=== PATIENT | female | born 1935 | race Two or more races ===

== ENCOUNTER → 2016-09-12 | Outpatient (CLI) | payer MEDICARE, OTHER ==
--- NOTE | 2016-09-12 23:00 | HKNOTE ---
DATE OF SERVICE: 09/12/2016 The patient continues to complain of pain in both knees. She is thinking about having knee replacem ent surgery. She continues to have severe pain in her right knee. She cannot walk without her walk er. She gets pain and stiffness in both knees every day. She takes Voltaren or wrkf-vqd-lopfdhz NS AIDs which do not help very much anymore. She has had 2 series of cortisone injections into her kne es. The pain has gotten very severe of late. Pain is aggravated by walking. She does limp most of the time. She does not have a shoe lift. PAST ORTHOPEDIC HISTORY: PREVIOUS ORTHOPEDIC OPERATIONS: None. PRIOR CORTISONE INTAKE: None. ALCOHOL INTAKE: None. OTHER JOINT PROBLEMS: Left knee. BLOOD TESTS FOR ARTHRITIS: None. PRIOR INJURIES TO HIPS OR KNEES: None. PAST MEDICAL HISTORY: 1. The patient had previous breast cancer 38 years ago. 2. Hypertension. PAST SURGICAL HISTORY: Left breast mastectomy 35 years ago. ALLERGIES TO MAJOR MEDICATIONS: NONE. FAMILY HISTORY: Father at 92 of unstated cause. Mother at 86, unstated cause. SYSTEMS REVIEW: History of cancer, otherwise entirely negative. HABITS: The patient does not smoke or drink alcoholic beverages. PHYSICAL EXAMINATION: GENERAL: The patient comes in with her son and her daughter. She has an antalgic gait. VITAL SIGNS: Height 4 feet 10 inches. Weight 250 pounds. Blood pressure 170/80, temperature 98.5. HIPS: Both hips have a full range of motion without pain. RIGHT KNEE: The right knee shows normal alignment. Active and passive extension lacks 10 degrees. Active and passive flexion to 95 degrees. The medial and lateral collateral ligaments and cruciate ligaments are intact. Virginie test is negative. There is 6+ crepitus in the knee, none in the hassan lla. There is 1+ effusion. Pain at the limits of motion. No scarring or cysts. The patella track s normally. There is no tenderness on the articular surface of the patella or in the patellar groov e. The Q angle is normal. LEFT KNEE: The left knee shows normal alignment. Active and passive extension is 0 degrees. Activ e and passive flexion is 135 degrees. Pain on forced flexion and forced extension. The medial and lateral collateral ligaments and cruciate ligaments are intact. Virginie test is negative. There is no effusion, tenderness, scarring, crepitus, or cysts. The patella tracks normally. There is no t enderness on the articular surface of the patella or in the patellar groove. The Q angle is normal. IMAGING: Plain x-rays of the right knee obtained today at the [facility] were re viewed (3 views). These images show ____ severe degenerative changes in the medial compartment and patellofemoral joint. In both of these compartments, the cartilage has worn away completely, and th ere is gefg-xm-qows contact. Subchondral sclerosis is present. Osteophyte formation is present. DIAGNOSES: 1. Severe degenerative arthritis of the right knee. 2. History of breast cancer. 3. Hypertension. MANAGEMENT: The patient was advised that her options are to live with the problem or to consider kn ee replacement surgery. The operation of knee replacement was discussed with her through her son an d daughter translating in a fair amount of detail including the major postoperative care and possibl e complications. The patient was given my manual titled "Arthritis of the Knee Joint" which contains information conc erning the various alternatives of treatment. It includes various forms of conservative treatment, i ncluding the use of nonsteroidal anti-inflammatory medications and their dangers. Various surgical a lternatives are discussed. The technique of total knee replacement is discussed in detail, including possible complications. Included also is a section on the possible complications of blood transfusi on, a section on postoperative precautions, and an exercise program to follow at home after total kn ee replacement. The long-term care of a total knee replacement implant is also covered in detail. Th e patient was instructed to read this manual in its entirety since it is, in and of itself, a form o f informed consent. After reading this manual, the patient will make a list of further questions fatimah t may not have been covered adequately. The patient was further advised that this manual, although e xhaustive in nature, is only intended to supplement and complement a one-on-one discussion with me. FINAL DIAGNOSES: 1. Severe degenerative arthritis of the right knee. 2. History of breast cancer. 3. Hypertension. The patient's surgery will be scheduled to be performed in the near future. Dictated By: FABI REYES/PARK Conf#: [id number] DID#: [id number]
--- NOTE | 2016-09-13 16:41 | RADRPT ---
PROCEDURE: XR right knee. CLINICAL INDICATION: Knee pain TECHNIQUE: AP weightbearing, lateral weightbearing and sunrise views are available for review. COMPARISON: None available FINDINGS: There is severe osteoarthrosis involving the medial tibial femoral compartment and mild to moderate osteoarthrosis involving the patellofemoral compartment. This is associated with joint space narrowi ng, subchondral sclerosis and osteophytosis. There is diffuse osteopenia. No fractures are identifi ed. No osseous lesions are identified. The soft tissues are unremarkable. IMPRESSION: Diffuse osteopenia. Severe osteoarthrosis involving the medial tibial femoral compartment and mild to moderate osteoarth rosis involving the patellofemoral compartment RPTAT: HGDB .Loc Little MD, MD Date Time Electronically viewed and signed by .Loc Little MD, on 09/13/2016 16:41 .B/
--- NOTE | 2016-09-18 16:42 | PREOPHP ---
DATE OF ADMISSION: 09/12/2016 PREOPERATIVE INTERNAL MEDICINE CONSULTATION MEDICAL HISTORY AND PHYSICAL The patient to have surgery with Dr. Cesar Eng on 09/20/2016. REASON FOR CONSULTATION: Consultation requested by Dr. Cesar Eng for medical evaluation and clearance of an 81-year-old woman about to undergo total knee replacement on the right knee. Thank you, Dr. Eng, for allowing us to participate in the care of this patient. HISTORY OF PRESENT ILLNESS: Reynaldo Urena an 81-year-old woman, longstanding problems with her knees currently addressing the right knee, scheduled for total knee replacement on the right side 09/20/2016. Only prior surgery was for mastectomy of the right breast for breast cancer. Other than that, she has had no other surgeries. Has had 3 deliveries which were vaginal. Had no medical hospitalizations, broken no big bones and currently apparently only taking eye drops, according to the patient. ALLERGIES: SHE IS NOT ALLERGIC TO ANY MEDICATIONS. SOCIAL HISTORY: The patient is a , has 3 daughters, 7 grandchildren, all in good health. She does not smoke or drink alcoholic beverages nor does she drink coffee and usually has no great problems sleeping at night. FAMILY HISTORY: Both parents are . Father at age 82 of an CT. Mother in her 80s of natural causes, she did not know the cause. There is no family history of heart disease. There is no diabetes, cancer, hypertension or stroke to her knowledge. REVIEW OF SYSTEMS HEENT: Periodic headaches. CARDIORESPIRATORY: Denies any significant chest pain or shortness of breath. GASTROINTESTINAL: No melena or hematemesis. GENITOURINARY: No urgency, frequency. 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 MUSCULOSKELETAL: Positive for right knee pain. NEUROPSYCHIATRIC: Unremarkable. GENERAL HEALTH: As above. PHYSICAL EXAMINATION: VITAL SIGNS: The patient's blood pressure was 120/70, pulse was 92 and regular , respirations were 18, temperature 98.4. Height 149 cm, weight 209.5 pounds. GENERAL: The patient was noted to be a well-developed, well-nourished female, alert and cooperative, in no apparent acute distress, oriented to time, place, and person. HEAD, EARS, EYES, NOSE AND THROAT: Head was atraumatic. Eyes: Pupils were equal, reactive to light and accommodation. Fundi were grossly benign. Tympanic membranes were unremarkable. Nose was negative. Mouth was unremarkable. Fair oral hygiene was present. NECK: Supple without any rigidity. Trachea was midline. Thyroid was within normal limits. Neck veins were flat. Carotid pulses were equal. No bruits were heard. BACK: Revealed kyphotic deformity. CHEST: Asymmetrical with a right mastectomy scar being noted. Left breast was normal. LUNGS: No obvious axillary masses, scar being noted. Left breast and both axillary exams were unremarkable save for some swelling in the right upper extremity secondary to lymph node dissections. LUNGS: Clear to percussion and auscultation. HEART: PMI is fifth intercostal space at the midclavicular line. A regular sinus rhythm was noted. No significant murmurs, rubs, or gallops being elicited. ABDOMEN: Soft, good bowel sounds were noted. No significant organomegaly, masses, or tenderness. GENITALIA: Normal female external genitalia. PELVIC/RECTAL: Per PCP done recently described as being unremarkable. EXTREMITIES: Revealed the right upper extremity to be somewhat edematous secondary to her poor lymph drainage secondary to lymph node dissection, otherwise there was no clubbing, edema or cyanosis. Peripheral pulses were physiologic. Both knees revealed degenerative joint changes of right greater than left. Peripheral pulses were physiologic. SKIN: Moist and warm without any eruptions. No gross lymphadenopathy was noted. NEUROLOGIC: Grossly intact. IMPRESSION: 1. Degenerative joint disease, right knee. 2. Carcinoma of the right breast post-mastectomy on the right side and lymphedema right upper extremity. 3. Diabetes mellitus type 2. 4. Subclinical hypothyroidism. 5. Stable health. DISCUSSION: Review of laboratory and other data revealed the following: The patient's chemistry panel revealed minimally elevated cholesterol and triglycerides glucose of 159. The rest of the electrolytes, BUN, creatinine, liver function tests were basically within normal limits. The patient's CBC, PT and PTT were normal as was her vitamin D, her thyroid function tests revealed a TSH of 8.20 with a free T4 of 0.76, which is normal. Hemoglobin A1c which was 7.1. The patient's EKG and chest x-ray revealed normal lungs, otherwise no acute cardiopulmonary changes being noted. DISCUSSION: Dr. Eng, I see no contraindication to patient undergoing current proposed surgery under the desired form of anesthesia and we will follow her along with you during her stay at [facility], in terms of her general medical condition. Thank you again, Dr. Eng, for allowing us to participate in the care of this patient. Dictated By: DEREK CARLSON/PARK Conf#: [id number] DID#: [id number] MTDD
== END | disposition home or self-care (01) ==
LOC: HKI 15:11
DX: Z01.818 Encounter for other preprocedural examination (principal); M17.11 Unilateral primary osteoarthritis, right knee; C50.911 Malignant neoplasm of unspecified site of right female breast; E11.9 Type 2 diabetes mellitus without complications; E03.9 Hypothyroidism, unspecified
CPT/HCPCS: 73562; G0463

== ENCOUNTER 2016-09-20 05:43 | Inpatient (IN) | payer MEDICARE, OTHER ==
--- NOTE | 2016-09-18 16:42 | PREOPHP ---
DATE OF ADMISSION: 09/12/2016 PREOPERATIVE INTERNAL MEDICINE CONSULTATION MEDICAL HISTORY AND PHYSICAL The patient to have surgery with Dr. Cesar Eng on 09/20/2016. REASON FOR CONSULTATION: Consultation requested by Dr. Cesar Eng for medical evaluation and clearance of an 81-year-old woman about to undergo total knee replacement on the right knee. Thank you, Dr. Eng, for allowing us to participate in the care of this patient. HISTORY OF PRESENT ILLNESS: Reynaldo Urena an 81-year-old woman, longstanding problems with her knees currently addressing the right knee, scheduled for total knee replacement on the right side 09/20/2016. Only prior surgery was for mastectomy of the right breast for breast cancer. Other than that, she has had no other surgeries. Has had 3 deliveries which were vaginal. Had no medical hospitalizations, broken no big bones and currently apparently only taking eye drops, according to the patient. ALLERGIES: SHE IS NOT ALLERGIC TO ANY MEDICATIONS. SOCIAL HISTORY: The patient is a , has 3 daughters, 7 grandchildren, all in good health. She does not smoke or drink alcoholic beverages nor does she drink coffee and usually has no great problems sleeping at night. FAMILY HISTORY: Both parents are . Father at age 82 of an SD. Mother in her 80s of natural causes, she did not know the cause. There is no family history of heart disease. There is no diabetes, cancer, hypertension or stroke to her knowledge. REVIEW OF SYSTEMS HEENT: Periodic headaches. CARDIORESPIRATORY: Denies any significant chest pain or shortness of breath. GASTROINTESTINAL: No melena or hematemesis. GENITOURINARY: No urgency, frequency. 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 MUSCULOSKELETAL: Positive for right knee pain. NEUROPSYCHIATRIC: Unremarkable. GENERAL HEALTH: As above. PHYSICAL EXAMINATION: VITAL SIGNS: The patient's blood pressure was 120/70, pulse was 92 and regular , respirations were 18, temperature 98.4. Height 149 cm, weight 209.5 pounds. GENERAL: The patient was noted to be a well-developed, well-nourished female, alert and cooperative, in no apparent acute distress, oriented to time, place, and person. HEAD, EARS, EYES, NOSE AND THROAT: Head was atraumatic. Eyes: Pupils were equal, reactive to light and accommodation. Fundi were grossly benign. Tympanic membranes were unremarkable. Nose was negative. Mouth was unremarkable. Fair oral hygiene was present. NECK: Supple without any rigidity. Trachea was midline. Thyroid was within normal limits. Neck veins were flat. Carotid pulses were equal. No bruits were heard. BACK: Revealed kyphotic deformity. CHEST: Asymmetrical with a right mastectomy scar being noted. Left breast was normal. LUNGS: No obvious axillary masses, scar being noted. Left breast and both axillary exams were unremarkable save for some swelling in the right upper extremity secondary to lymph node dissections. LUNGS: Clear to percussion and auscultation. HEART: PMI is fifth intercostal space at the midclavicular line. A regular sinus rhythm was noted. No significant murmurs, rubs, or gallops being elicited. ABDOMEN: Soft, good bowel sounds were noted. No significant organomegaly, masses, or tenderness. GENITALIA: Normal female external genitalia. PELVIC/RECTAL: Per PCP done recently described as being unremarkable. EXTREMITIES: Revealed the right upper extremity to be somewhat edematous secondary to her poor lymph drainage secondary to lymph node dissection, otherwise there was no clubbing, edema or cyanosis. Peripheral pulses were physiologic. Both knees revealed degenerative joint changes of right greater than left. Peripheral pulses were physiologic. SKIN: Moist and warm without any eruptions. No gross lymphadenopathy was noted. NEUROLOGIC: Grossly intact. IMPRESSION: 1. Degenerative joint disease, right knee. 2. Carcinoma of the right breast post-mastectomy on the right side and lymphedema right upper extremity. 3. Diabetes mellitus type 2. 4. Subclinical hypothyroidism. 5. Stable health. DISCUSSION: Review of laboratory and other data revealed the following: The patient's chemistry panel revealed minimally elevated cholesterol and triglycerides glucose of 159. The rest of the electrolytes, BUN, creatinine, liver function tests were basically within normal limits. The patient's CBC, PT and PTT were normal as was her vitamin D, her thyroid function tests revealed a TSH of 8.20 with a free T4 of 0.76, which is normal. Hemoglobin A1c which was 7.1. The patient's EKG and chest x-ray revealed normal lungs, otherwise no acute cardiopulmonary changes being noted. DISCUSSION: Dr. Eng, I see no contraindication to patient undergoing current proposed surgery under the desired form of anesthesia and we will follow her along with you during her stay at [facility], in terms of her general medical condition. Thank you again, Dr. Eng, for allowing us to participate in the care of this patient. Dictated By: DEREK CARLSON/PARK Conf#: [id number] DID#: [id number] MTDD
[2016-09-20] VITALS (23 sets, daily range): BP systolic 107–164; BP diastolic 54–76; PULSE 76–98; RESP 14–20; Ht 144.8 cm; Wt 95.0 kg
[~2016-09-20] VITALS: Ht 144.8 cm; Wt 95.0 kg
[2016-09-20] MEDS: KNEE PAIN COCKTAIL VANCO INJ SCH ×12 (05:00→08:58)
[2016-09-20] MEDS ORDERED: TRANEXAMIC ACID 2,000 MG in SOD CHLORIDE 0.9% 100 ML IVPB ONE (06:00)
[2016-09-20] MEDS ORDERED: ONDANSETRON 4 MG INJ IV ONE (06:00)
[2016-09-20] MEDS ORDERED: ACETAMINOPHEN 1000MG/100ML IV 100 ML IVPB ONE (06:00)
[2016-09-20] MEDS ORDERED: oxyCODONE (CR) 10 MG TAB [oxyCONTIN] PO ONE (06:00)
[2016-09-20] MEDS ORDERED: LACTATED RINGER'S 1,000 ML IV* SCH (06:00)
[2016-09-20] MEDS ORDERED: DEXAMETHASONE 4 MG/ML 1 ML INJ IV ONE (06:00)
[2016-09-20] MEDS ORDERED: LANSOPRAZOLE 30 MG CAP PO ONE (06:00)
[2016-09-20] MEDS ORDERED: VANCOMYCIN 1 GM (PMX) 250 ML IVPB ONE (06:00)
[2016-09-20] MEDS ORDERED: CELECOXIB 200 MG CAP PO ONE (06:00)
[2016-09-20] MEDS ORDERED: GLYCOPYRROLATE 0.4 MG INJ ONE (06:10)
[2016-09-20] MEDS ORDERED: MIDAZOLAM 1 MG/ML 2 ML INJ ONE (06:10)
[2016-09-20] MEDS ORDERED: PROPOFOL 20 ML ONE (06:10)
[2016-09-20] MEDS ORDERED: ROCURONIUM 50 MG INJ ONE (06:10)
[2016-09-20] MEDS ORDERED: FENTAnyl 50 MCG/ML VIAL ONE (06:10)
[2016-09-20] MEDS ORDERED: LIDOCAINE 2% (SDV) 5 ML INJ ONE (06:10)
[2016-09-20] MEDS ORDERED: NEOSTIGMINE 3 MG/3 ML SYRINGE ONE (06:10)
[2016-09-20] MEDS ORDERED: DEXAMETHASONE 4 MG/ML 1 ML INJ ONE (06:14)
[2016-09-20] MEDS ORDERED: ONDANSETRON 4 MG INJ ONE (06:14)
[2016-09-20] MEDS ORDERED: LIDOCAINE 2%/EPI 30 ML INJ ONE (06:18)
[2016-09-20] MEDS ORDERED: MIDAZOLAM 1 MG/ML 2 ML INJ IV PRN (06:30)
[2016-09-20] MEDS ORDERED: ATROPINE 1 MG/10 ML SYRINGE IV PRN (06:30)
[2016-09-20] MEDS ORDERED: ONDANSETRON 4 MG INJ IV PRN (06:30)
[2016-09-20] MEDS ORDERED: morphine (1 MG/ML) 10ML SYRINGE IV PRN ×3 (06:30)
[2016-09-20] MEDS ORDERED: DIPHENHYDRAMINE 50 MG INJ IV PRN (06:30)
[2016-09-20] MEDS ORDERED: HYDROmorphONE (0.2 MG/ML) 10ML SYG IV PRN ×3 (06:30)
[2016-09-20] MEDS ORDERED: hydrALAzine 20 MG INJ IV PRN (06:30)
[2016-09-20] MEDS ORDERED: OXYCODONE/ACETAMINOPHEN (5/325) TAB PO PRN ×2 (06:30)
[2016-09-20] MEDS ORDERED: EPHEDrine SULFATE 50 MG/5 ML SYG IV PRN (06:30)
[2016-09-20] MEDS ORDERED: FENTAnyl 50 MCG/ML VIAL IV PRN ×2 (06:30)
[2016-09-20] MEDS ORDERED: LABETALOL HCL 20MG INJ IV PRN (06:30)
[2016-09-20] MEDS ORDERED: MEPERIDINE 25 MG INJ IV PRN (06:30)
[2016-09-20] MEDS ORDERED: TOBRAMYCIN 1.2 GM POWDER ONE (07:00)
[2016-09-20] MEDS ORDERED: METHYLENE BLUE 10 MG/ML VIAL ONE (07:00)
[2016-09-20] MEDS ORDERED: BUPIVACAINE 0.25%/EPI (SDV) 30 ML INJ ONE (07:00)
[2016-09-20] MEDS ORDERED: POLYMYXIN B 500000 UNIT INJ ONE (07:00)
[2016-09-20] MEDS ORDERED: ROPIVACAINE 0.2% 100 ML ONE (07:00)
[2016-09-20] MEDS ORDERED: SUCCINYLCHOLINE CHLORIDE 100 MG/5 ML SYG IV ONE (07:00)
[2016-09-20] MEDS ORDERED: VANCOMYCIN 1 GM INJ ONE (07:01)
--- NOTE | 2016-09-20 07:04 | HPN ---
Date/Time of Note Date/Time of Note DATE: 09/20/16 TIME: 07:03 Interval H&P Admission Note Pt. seen H&P reviewed: No system changes DAVONTE ALMARAZ PA-C Sep 20, 2016 07:04
[2016-09-20] MEDS ORDERED: SOD CHLORIDE 0.9% 50 ML, TRANEXAMIC ACID 2,000 MG IRR SCH ×2 (07:30)
[2016-09-20] MEDS ORDERED: EPHEDrine SULFATE 50 MG/5 ML SYG ONE (07:44)
[2016-09-20] MEDS ORDERED: BACITRACIN 50000 UNITS INJ IRR ONE (08:46)
[2016-09-20] MEDS ORDERED: LATA2.5D2 BOTH EYES (08:52)
[2016-09-20] MEDS ORDERED: CALC600T5 PO (08:52)
[2016-09-20] MEDS ORDERED: VALS1TAB5 PO (08:52)
[2016-09-20] MEDS ORDERED: AZOP1OP10 BOTH EYES (08:52)
[2016-09-20] MEDS ORDERED: ASPI81TA3 PO (08:52)
[2016-09-20] MEDS ORDERED: LEVO25TA53 PO (08:52)
[2016-09-20] MEDS ORDERED: METO25TA7 PO (08:52)
[2016-09-20] MEDS ORDERED: ROPIVACAINE 0.2% 100ML BAG INJ ONE (08:58)
[2016-09-20] MEDS: DEXTROSE 5%-LR 1,000 ML IV SCH ×2 (11:32→19:00)
[2016-09-20] MEDS ORDERED: DOCUSATE SODIUM 100 MG CAP PO ONE (12:00)
[2016-09-20] MEDS ORDERED: ZOLPIDEM 5 MG TAB PO PRN (12:00)
[2016-09-20] MEDS ORDERED: DIPHENHYDRAMINE 50 MG INJ IM PRN (12:00)
[2016-09-20] MEDS ORDERED: NALOXONE (0.4 MG/ML) INJ IV PRN (12:00)
[2016-09-20] MEDS ORDERED: ASPIRIN (EC) 325 MG TAB PO ONE (12:00)
[2016-09-20] MEDS ORDERED: NA PHOSPHATE/BIPHOS 133 ML ENEMA PR PRN (12:00)
[2016-09-20] MEDS ORDERED: BISACODYL 10 MG SUPP PR PRN (12:00)
[2016-09-20] MEDS ORDERED: COUMADIN NOTE XX SCH (12:00)
[2016-09-20] MEDS ORDERED: SENNA/DOCUSATE NA (8.6MG/50MG) TAB PO PRN (12:00)
[2016-09-20] MEDS ORDERED: MAGNESIUM HYDROXIDE 30ML CUP PO PRN (12:00)
[2016-09-20] MEDS ORDERED: oxyCODONE 5 MG TAB PO PRN ×3 (12:00)
[2016-09-20] MEDS ORDERED: MEPERIDINE 10 MG/ML 30 ML PCA IV PRN (12:00)
[2016-09-20] MEDS ORDERED: HYDROmorphONE 0.2 MG/ML PCA IV PRN (12:00)
[2016-09-20] MEDS ORDERED: BETHANECHOL 25 MG TAB PO PRN (12:00)
--- NOTE | 2016-09-20 12:06 | RADRPT ---
PROCEDURE: XR right knee. CLINICAL INDICATION: Knee pain. TECHNIQUE: AP and lateral views are available for review. COMPARISON: No comparison available FINDINGS: There is a postoperative constrained total knee replacement. There is no evidence of loosening of th e prosthesis. The osseous structures are normal in mineralization, architecture and alignment No acu te fracture or dislocation is seen.No osseous lesions are identified. There are postoperative soft tissue changes. [address] . IMPRESSION: Unremarkable postoperative constrained total knee replacement. Postoperative soft tissue changes RPTAT: HGDB .Loc Little MD, MD Date Time Electronically viewed and signed by .Loc Little MD, MD on 09/20/2016 12:06 .B/
[2016-09-20] MEDS: CEFAZOLIN 1 GM/50 ML (PMX) 50 ML IVPB SCH ×2 (12:09→20:06)
[2016-09-20] MEDS: ACETAMINOPHEN 1000MG/100ML IV 100 ML IVPB SCH ×2 (12:09→20:07)
[2016-09-20] MEDS: ONDANSETRON 4 MG INJ IV SCH ×2 (12:10→18:29)
--- NOTE | 2016-09-20 12:46 | OPR ---
DATE OF OPERATION: 09/20/2016 TOTAL KNEE REPLACEMENT TEMPLATE #1 SURGEON: Cesar Eng MD STEREO PLOTTER OPERATOR: Fan ANESTHESIOLOGIST: Dr. José PREOPERATIVE DIAGNOSIS: Exceedingly severe degenerative osteoarthritis of the right knee. POSTOPERATIVE DIAGNOSIS: Exceedingly severe degenerative osteoarthritis of the right knee. OPERATION PERFORMED: Right total knee replacement (arthroplasty of the knee, condylar plateau media l and lateral compartments with patella resurfacing, CPT 17317). FINDINGS AT SURGERY: The patient was found to have exceedingly severe degenerative osteoarthritis a ffecting all 3 compartments of the knee. The arthritis was much more severe than it appeared to be on x-ray. There was no remaining articular cartilage on medial femoral condyle or the medial tibial plateau. There was some pathological cartilage remaining on the patella surface and the lateral co mpartment. JUSTIFICATION FOR SURGERY: The knee was found to have end-stage osteoarthritis. The patient is a m arkedly incapacitated 81-year-old female whose activities of daily living is markedly affected by th e arthritic knee. An extensive course of conservative care has been tried prior to embarking on the knee replacement operation. There can be no reasonable expectation that any further conservative t reatment will make any improvement to this patient's pain level and lifestyle. The risks and compli cations of the surgery were discussed with the patient at the preoperative visit as well as the risk s and possible complications of blood transfusion using hospital blood. The patient is agreeable to using hospital blood if needed. DESCRIPTION OF PROCEDURE: The patient was given intravenous antibiotics 1 hour prior to surgery. A n epidural anesthetic was initiated in the ICU holding area. The patient was taken to the operating room and given a light general anesthetic. The leg, foot, and ankle were prepared and draped in th e usual sterile fashion. The center of the ankle was marked at the midpoint between the 2 malleoli with a sterile marking pen. A tourniquet around the thigh was inflated to 275 mmHg after the leg mauro d been exsanguinated using an Esmarch bandage. The tourniquet was inflated at the initiation of pro cedure for a short period and was then again reinflated at the time of cementing the components part s. The total tourniquet time was 54 minutes. A longitudinal incision was made over the anterior aspect of the knee. The incision extended from t he tibial tubercle to a point just above the patella. The medial capsule was exposed by sharp and b diana dissection, and was incised 1/4 inch medial to the patella. A marking stitch was set on each s ida of the incision at the midpoint of the capsule so as to enable accurate reapproximation at the e nd of the operation. A vastus split was made in the vastus medialis extending from the superior haile e of the patella for approximately 5 cm between the line with the muscle fibers. The ends of the mu scle split at the patella were marked with a marking stitch on each side for later accurate reapprox imation. The patella was reflected laterally and osteophytes around the rim of the patella were rem shanel. Osteophytes along the lateral femoral condyle were removed so as to facilitate lateral reflec tion of the patella. Posteromedial osteophytes were removed on the lateral side as well, so as to f ree up the lateral collateral ligament. Medial femoral osteophytes and posteromedial femoral osteop hytes were also removed at this time. This allowed for the knee to be brought into a more normal al ignment. A segment of bone was cut from the articular surface of the patella using a caliper to det ermine the exact thickness to be removed. The remaining thickness of the patella was 16 mm. The kn ee was flexed, and the patella was displaced laterally without eversion. Osteophytes in the femoral notch were removed. The remnants of the medial and lateral menisci were excised and the cruciate l igaments were excised. The medial collateral ligament was elevated as an osteo-periosteal flap from the proximal tibia. The distal end of the medial collateral ligament remained attached to the tibi a throughout the operation. The tibia was retracted forward with Hohmann retractor, inserted it communications specialist ior to the midpoint of the proximal tibia. The tibial jig was set in place in such a way as to alig n longitudinally with the anterior tibial spine, with the junction of the middle and medial 2/3 of t he patella tendon, and with the posterior intercondylar eminence of the tibia. An AP and lateral x- ray was obtained with the alignment jig in place. This showed that the alignment was satisfactory a fter some slight adjustments were made. The posterior slope of the tibia was set at 90 degrees. Th e tibial cutting block was attached to the proximal tibia with 2 Steinmann pins. An external alignm ent pierre was placed on the cutting block to confirm the alignment of the cutting block. An Corey Win g feeler gauge was now placed on the superior aspect of the cutting block to further confirm the pos terior slope of the tibia and the depth of the cut to be made. An oscillating saw was used to remov e an appropriate amount of bone from the proximal tibia with the healthy side being used to measure the cutting depth. The patient's one was markedly soft on the tibial side, and it had already been determined that a revision tibial component would be used with an intramedullary component. The lat eral femoral condyle of the distal femur was measured to determine the appropriate size for the femo ral component. The anterior condyle of the femur was partially removed with a rongeur. A medium-si zed cutting block was attached to the distal femur with 2 Steinmann pins through the pin holes in th e block. The external alignment jig of this cutting block was lined up with the anterior surface of the femur and a central intercondylar hole for the intramedullary pierre was drilled through the hole in the alignment block. The block was removed. A long Waterpik nozzle was used to flush fat from t he intramedullary canal. The appropriately sized cutting block was now attached to the femur by bernie ns of an intramedullary pierre. The linking guide was inserted into the slot in the base of the femora l cutting block with the knee set at 90 degrees of flexion and with the linking guide set flush with the proximal tibial cut in order to set the appropriate rotational alignment on the femoral cutting block. Ligament balance was checked at this point and was found to be very satisfactory. Once the rotational alignment had been determined, and the ligaments found to be balanced, the femoral cutti ng block was secured to the distal femur with 2 Steinmann pins. The anterior and posterior cuts of the distal femur were made off the femoral cutting block. The cutting block was removed and a space r block was used to measure the flexion gap which was found to be ____ mm. The same spacer block size without the femoral element was used with the leg in extension to determi ne the amount of distal femur to be removed in the transverse plane. A 5-degree distal cutting bloc k was now set on the femoral intramedullary pierre, and the pierre was inserted into the intramedullary ca nal. The appropriate amount of bone to be removed was determined. The femoral cutting block was pi nned to the anterior surface of the femur with 2 Steinmann pins. The appropriate amount of bone was resected off the distal femur to give an extension gap equal to the thickness of the flexion gap. The cut needed to be repeated after initial cut in order to produce an extension gap the same size a s the flexion gap. By using the appropriate cutting blocks, the rest of the femoral cuts were made. The femoral trial component was installed and was found to fit perfectly. The femoral trial component was removed. Vijay lopez proximal tibia was sized, and the appropriate tibial tray selected. The central fixation hole in the tibia was made using the tibial tray template and the appropriate instruments. The femoral and tibial trials and the trial tibial insert were installed, and the patella was prepared to accept th e 32 mm domed patellar component (the smallest patellar trial). The trial components were all remov ed. The tourniquet was inflated. Soft tissues around the knee, especially the posterior capsule, w ere injected with a mixture of Naropin, Toradol, morphine, and clonidine. The cut surfaces of the b ones were cleaned with pulsatile Water Jet lavage and thoroughly dried. Sclerotic bone surfaces wer e drilled with a 1/8-inch drill. The tibial trial component was installed with methyl methacrylate cement followed by the femoral component and finally the patellar component. Cement was used on all 3 components. The cement was finger packed into the cut surfaces of the bone and pressurized with a rubber dam in order to get good interdigitation of the cement into the bone. A lateral x-ray of vijay lopez knee was obtained while the cement was hardening with the anticipated appropriate spacer trial in place. Once the cement was hard, all extraneous cement was removed. The cut edges of the medial c apsule were held together at the midpoint with a towel clip, and the knee was put through a full ran ge of motion. The patella was found to track satisfactorily. A lateral release was not required. At this point, the patella was found to track very well in the patellar groove of the femoral compon ent. The knee was frequently irrigated with normal saline containing antibiotics with pulsatile lavage th roughout the entire operation as a prophylactic measure against infection. Once the cement was hard , the tourniquet was released. Bleeding points were cauterized. The total tourniquet time was 54 m inutes. The patient's vital signs remained stable throughout the operation. The permanent rotating bearing was installed. Superficial and deep Hemovac drains were set in place . The wound was closed using interrupted Vicryl on the capsule with FiberWire used at strategic poi nts such as the attachment of the distal ends of the vastus medialis at the split, and the tibial te ndon was also attached to the osteo-periosteal flap with FiberWire. The rest of the medial capsule was closed with interrupted Vicryl. A subcuticular stitch was inserted and eros were used on the skin. The usual sterile dressings were applied. A Sadi-Pizarro compression dressing was applied a fter a sterile cooling pad had been set in place against the deep tissues by sterile cast padding. The patient's condition at the end of the procedure was satisfactory. Vital signs remained stable t hroughout the operation. The patient returned to the recovery room in stable condition. X-rays wer e obtained in the recovery room. Calf pumps were applied to both legs in the operating room. There were no problems or complications as far as we know. The sponge and instrument counts were correct . COMPONENT INFORMATION: KNEE IMPLANT TYPE: LCS. FEMORAL COMPONENT SIZE: Standard. TIBIAL COMPONENT SIZE: 2.5 INTRAMEDULLARY TIBIAL EXTENSION: 13 mm x 30 mm. PATELLAR COMPONENT SIZE: 30 mm dome. TIBIAL INSERT: 10 mm deep dish posterior stabilized. IMPLANT CLINICAL ACCOUNT LIAISON: [facility] [place], [place]. TOTAL TOURNIQUET TIME: 54 minutes. TOTAL BLOOD LOSS: Approximately 150 mL. Dictated By: CESAR REYES/PARK Conf#: [id number] DID#: [id number]
[2016-09-20] MEDS ORDERED: GLUCAGON 1 MG INJ IM PRN (13:30)
[2016-09-20] MEDS ORDERED: GLUCOSE GEL 15 GRAM TUBE BUCCAL PRN (13:30)
[2016-09-20] MEDS ORDERED: GLUCOSE GEL 15 GRAM TUBE PO PRN ×2 (13:30)
[2016-09-20] MEDS ORDERED: DEXTROSE 50% 50 ML SYRINGE IV PRN ×2 (13:30)
--- NOTE | 2016-09-20 13:40 | CONS ---
DATE OF ADMISSION: 09/20/2016 DATE OF CONSULTATION: TYPE OF CONSULTATION: Postoperative consult followup. REASON FOR ADMISSION: Patient to have surgery with Dr. Cesar Eng 09/20/2016. Patient see n in the recovery room, alert, arousable, and doing relatively well. VITAL SIGNS: The patient's vital signs 128/58, temperature 98.2, pulse 94 and regular, respirations 15, O2 on 2 liters 97%. HEENT: Unremarkable. LUNGS: Clear. HEART: Reveals a regular rhythm. The rest of the exam is unremarkable. IMPRESSION: 1. 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 2. Hypertension. 3. Hypothyroidism. 4. Diabetes mellitus type 2. 5. Stable health. DISCUSSION: To renew the patient's outpatient medications, Accu-Cheks will be done b.i.d., covered with mild insulin algorithm. The patient will be monitored both in terms of her blood pressure, bloo d sugar and general medical condition. Thank you again, Dr. Eng, for allowing us to participate in the care of this patient. Dictated By: DEREK GROVE MD SS/NTS Conf#: [id number] DID#: [id number]
--- NOTE | 2016-09-20 13:56 | RADRPT ---
PROCEDURE: Right knee radiograph. CLINICAL INDICATION: Right knee pain. Intraoperative. TECHNIQUE: 2 views. Frontal and lateral. COMPARISON: 09/12/2016. FINDINGS: There are components of a total right knee arthroplasty. IMPRESSION: 1. Satisfactory intraoperative imaging of the right knee. RPTAT: QQ .Markell Vásquez MD, MD Date Time Electronically viewed and signed by .Markell Vásquez MD, on 09/20/2016 13:56 .R/
--- NOTE | 2016-09-20 14:17 | RADRPT ---
PROCEDURE: Intraoperative imaging of the right knee with fluoroscopy. CLINICAL INDICATION: Right knee pain. Intraoperative. TECHNIQUE: 5 images of the right knee were obtained in the operating room with an image intensifie r. No radiologist was in attendance. 10.4 seconds of fluoroscopy time was used. COMPARISON: Prior imaging of the right knee done earlier the same day. FINDINGS: Surgical instruments are present for knee arthroplasty. IMPRESSION: 1. Intraoperative imaging of the right knee. RPTAT: QQ .Markell Vásquez MD, Date Time Electronically viewed and signed by .Markell Vásquez MD, on 09/20/2016 14:17 .R/
[2016-09-20] MEDS ORDERED: BACITRACIN 50000 UNITS INJ ONE (14:52)
[2016-09-20] MEDS ORDERED: TRANEXAMIC ACID 950 MG in SOD CHLORIDE 0.9% 100 ML IVPB ONE (15:00)
[2016-09-20] MEDS: INSULIN ASPART [NOVOLOG] 3 ML PEN SC SCH (18:30)
[2016-09-20] MEDS: CALCIUM CARBONATE 1.25 GM TAB PO SCH (18:30)
[2016-09-20] MEDS: BRINZOLAMIDE 1% 10ML OPH BOTH EYES SCH (21:14)
[2016-09-20] MEDS: LATANOPROST 0.005% 2.5 ML OPH BOTH EYES SCH (21:15)
[2016-09-20] MEDS: METOPROLOL (XL) 25 MG TAB PO SCH (21:24)
[2016-09-21 00:01] VITALS: BP 116/57; RESP 18
[2016-09-21] MEDS: DEXTROSE 5%-LR 1,000 ML IV SCH ×2 (00:02→06:34)
[2016-09-21] MEDS: ACETAMINOPHEN 1000MG/100ML IV 100 ML IVPB SCH ×3 (04:22→21:14)
[2016-09-21] MEDS: CEFAZOLIN 1 GM/50 ML (PMX) 50 ML IVPB SCH (04:25)
[2016-09-21 05:25] VITALS: BP 123/57; PULSE 80
[2016-09-21] MEDS: ONDANSETRON 4 MG INJ IV SCH ×2 (06:00)
[2016-09-21] MEDS ORDERED: LEVOTHYROXINE 25 MCG TAB PO SCH (06:00)
[2016-09-21] MEDS ORDERED: KETOROLAC 30 MG INJ INJ PRN (06:00)
[2016-09-21] MEDS ORDERED: BUPIVACAINE 0.25%/EPI (SDV) 30 ML INJ INJ PRN (06:00)
[2016-09-21 06:04] LABS: POTASSIUM 3.8 mmol/L (3.5-5.1)
[2016-09-21 06:06] LABS: CREATININE 1.24 mg/dl (0.44-1.00)
[2016-09-21 06:07] LABS: CALCIUM 8.5 mg/dl (8.4-10.2)
[2016-09-21 06:13] LABS: BASOPHIL # 0.1 10^3/ul (0.0-0.1); BASOPHILS % 0.4 % (0.0-2.0); EOSINOPHILS % 0.1 % (0.0-7.0); LYMPHOCYTES # 1.9 10^3/ul (0.8-2.9); LYMPHOCYTES % 13.7 % (15.0-51.0); MEAN CORPUSCULAR HEMOGLOBIN 28.9 pg (29.0-33.0); MEAN CORPUSCULAR HGB CONC 33.4 g/dl (32.0-37.0); MEAN CORPUSCULAR VOLUME 86.4 fl (82.0-101.0); MEAN PLATELET VOLUME 10.2 fl (7.4-10.4); MONOCYTE # 1.2 10^3/ul (0.3-0.9); MONOCYTES % 9.1 % (0.0-11.0); NEUTROPHIL # 10.5 10^3/ul (1.6-7.5); NEUTROPHILS % 76.7 % (39.0-77.0); PLATELET COUNT 185 10^3/UL (140-440); RED BLOOD COUNT 3.82 10^6/ul (4.20-5.40); RED CELL DISTRIBUTION WIDTH 13.9 % (11.5-14.5); UNCORRECTED WBC 13.6 10^3/ul (4.8-10.8); WHITE BLOOD COUNT 13.6 10^3/ul (4.8-10.8)
[2016-09-21 06:18] LABS: CONDITION 1; LH ANALYZER COMMENTS 1; SUSPECT 1
[2016-09-21] MEDS: DEXAMETHASONE 4 MG/ML 1 ML INJ IV SCH (06:33)
[2016-09-21] MEDS: LEVOTHYROXINE 25 MCG TAB PO SCH (06:33)
[2016-09-21 06:46] LABS: ADD UMIC NO; URINE BILIRUBIN (Dip) NEGATIVE (NEGATIVE); URINE BLOOD (Dip) NEGATIVE (NEGATIVE); URINE COLOR LT. YELLOW (YELLOW); URINE GLUCOSE (Dip) NEGATIVE (NEGATIVE); URINE KETONES (Dip) NEGATIVE (NEGATIVE); URINE LEUKOCYTE ESTERASE (Dip) NEGATIVE (NEGATIVE); URINE NITRITE (Dip) NEGATIVE (NEGATIVE); URINE TOTAL PROTEIN (Dip) NEGATIVE (NEGATIVE); URINE UROBILINOGEN (Dip) 0.2 E.U./dL (0.1-1.0)
[2016-09-21] MEDS: INSULIN ASPART [NOVOLOG] 3 ML PEN SC SCH ×2 (07:20→18:28)
[2016-09-21] MEDS: BRINZOLAMIDE 1% 10ML OPH BOTH EYES SCH ×2 (09:00→21:14)
[2016-09-21] MEDS: FERROUS FUMARATE (SR) TAB PO SCH ×2 (09:15→21:14)
[2016-09-21] MEDS: CELECOXIB 200 MG CAP PO SCH ×2 (09:16→21:14)
[2016-09-21] MEDS: DOCUSATE SODIUM 100 MG CAP PO SCH ×2 (09:16→21:15)
[2016-09-21] MEDS: ASPIRIN (EC) 325 MG TAB PO SCH ×2 (09:16→21:14)
[2016-09-21] MEDS: METOPROLOL (XL) 25 MG TAB PO SCH ×2 (09:16→21:15)
[2016-09-21] MEDS: CALCIUM CARBONATE 1.25 GM TAB PO SCH (09:16)
[2016-09-21] MEDS: LINAGLIPTIN 5 MG TABLET PO SCH (11:29)
[2016-09-21] MEDS ORDERED: SOD CHLORIDE 0.45% 1,000 ML IV SCH (11:30)
[2016-09-21] MEDS ORDERED: CEPASTAT LOZENGE MT PRN (11:30)
--- NOTE | 2016-09-21 12:17 | PN ---
Date/Time of Note Date/Time of Note DATE: 09/21/16 TIME: 12:13 Assessment/Plan VTE Prophylaxis VTE Prophylaxis Intervention: ambulation, anti-embolic stocking, SCD's, other ( Aspirin 325 mg twice daily) Lines/Catheters IV Catheter Type (from Nrsg): Peripheral IV Agustin in Place (from Nrsg): Yes Assessment/Plan Assessment/Plan -Hemovac Removed Today -Pain Cocktail Given -Pain Meds as needed -Dress change performed today -OOB with PT -ASA/SCDs for DVT Prophylaxis -Continue monitoring with Internal Medicine -Patient Stable Subjective 24 Hr Interval Summary 81 yo F POD#1 s/p R TKA. No pain complaints. Patient has been up and out of bed and ambulating with use of front wheeled walker. Patient has been performing physical therapy and able to ambulate throughout the hallways. Denies any calf pain, chest pain or shortness of breath. Daughter present today who is also translating today's visit. Constitutional: no complaints Pain Control: well controlled Exam/Review of Systems Vital Signs Vitals Vital Signs Date Time Temp Pulse Resp B/P Pulse Ox O2 Delivery O2 Flow Rate FiO2 09/21/16 05:25 97.2 80 123/57 98 09/21/16 00:01 18 09/20/16 18:30 Nasal Cannula 2.0 Intake and Output 09/20/16 09/20/16 09/21/16 15:00 23:00 07:00 Intake Total 1620 ml 450 ml 1350 ml Output Total 227 ml 1275 ml 710 ml Balance 1393 ml -825 ml 640 ml Exam Free Text/Dictation -Hemovac: Intact. 200cc output -Pain Cocktail Drains: Intact -Incision: Clean, Dry and Intact without any redness or drainage -5/5 Tibialis Anterior, EHL Gastrocnemius/Soleus and Peroneals -Normal Sensation -Palpable DP/PT, Capillary Refill <2 secs -No Distal Edema -Negative Dudley Sign/No calf pain -Toes Freely Movable Results Result Diagram: 09/21/1643909/21/16439 DAVONTE ALMARAZ PA-C Sep 21, 2016 12:17
--- NOTE | 2016-09-21 19:17 | CONS ---
Date/Time of Note Date/Time of Note DATE: 09/21/16 TIME: 19:10 Assessment/Plan Assessment/Plan Problems: (1) Diabetes mellitus type 2 in obese Status: Chronic Comment: Blood Glucose slightly above target. Will add linagliptin. (2) Post-operative state Status: Acute Comment: Status post total knee replacement. Clinically doing well. Minimal pain. Recommendations per Dr. Null and his team. (3) Hypothyroid Status: Chronic Comment: Clinically euthyroid on minimum replacement therapy. (4) Hypertension Status: Chronic Comment: Good control Qualifiers: Hypertension type: essential hypertension Qualified Code: I10 - Essential hypertension Consultation Date/Type/Reason Admit Date/Time Sep 20, 2016 at 05:43 Initial Consult Date Type of Consultation: Internal Medicine Reason for Consultation Post operative medical management Referring Provider: FABI NULL MD 24 HR Interval Summary Free Text/Dictation Able to express absence of pain Exam/Review of Systems Vital Signs Vitals Vital Signs Date Time Temp Pulse Resp B/P Pulse Ox O2 Delivery O2 Flow Rate FiO2 09/21/16 05:25 97.2 80 123/57 98 09/21/16 00:01 18 09/20/16 18:30 Nasal Cannula 2.0 Intake and Output 09/20/16 09/20/16 09/21/16 15:00 23:00 07:00 Intake Total 1620 ml 450 ml 1350 ml Output Total 227 ml 1275 ml 710 ml Balance 1393 ml -825 ml 640 ml Exam Constitutional: alert, obese, oriented, well developed Neck: supple Respiratory: clear to auscultation, normal air movement Cardiovascular: regular rate and rhythm Musculoskeletal: nl extremities to inspection Extremities: normal pulses Results POC Labs and vitals reviewed Result Diagram: 09/21/16 0440 09/21/16 0440 Results 24 hrs Laboratory Tests Test 09/21/16 04:40 09/21/16 05:00 09/21/16 08:09 09/21/16 17:50 Anion Gap 16 Basophils # 0.1 Basophils % 0.4 Blood Morphology Comment Blood Urea Nitrogen 27 H Calcium Level 8.5 Carbon Dioxide Level 27 Chloride Level 100 Creatinine 1.24 H Eosinophils # 0.0 Eosinophils % 0.1 Glucose Level 131 Hematocrit 33.0 L Hemoglobin 11.0 L Lymphocytes # 1.9 Lymphocytes % 13.7 L Mean Corpuscular Hemoglobin 28.9 L Mean Corpuscular Hemoglobin Concent 33.4 Mean Corpuscular Volume 86.4 Mean Platelet Volume 10.2 Monocytes # 1.2 H Monocytes % 9.1 Neutrophils # 10.5 H Neutrophils % 76.7 Nucleated Red Blood Cells # 0.0 Nucleated Red Blood Cells % 0.0 Platelet Count 185 Potassium Level 3.8 Red Blood Count 3.82 L Red Cell Distribution Width 13.9 Sodium Level 139 White Blood Count 13.6 H Urine Bilirubin NEGATIVE Urine Clarity CLEAR Urine Color LT. YELLOW Urine Glucose NEGATIVE Urine Hemoglobin NEGATIVE Urine Ketones NEGATIVE Urine Leukocyte Esterase NEGATIVE Urine Nitrite NEGATIVE Urine Specific [place] 1.015 Urine Total Protein NEGATIVE Urine Urobilinogen 0.2 E.U./dL Urine pH 5.0 Bedside Glucose 140 176 Medications Medications Current Medications Dextrose/Lactated Ringer's (D5-Lr) 1,000 ml @ 80 mls/hr [id number] IV Last administered on 09/21/16 06:34; Admin Dose 80 MLS/HR; Start 09/20/16 at 11:32 Oxycodone HCl (Roxicodone) 20 mg Q3H PRN PO PAIN LEVEL 8-10; Start 09/20/16 at 12:00; Status Future hold Oxycodone HCl (Roxicodone) 10 mg Q3H PRN PO PAIN LEVEL 4-7; Start 09/20/16 at 12:00; Status Future hold Oxycodone HCl 5 mg 5 mg Q3H PRN PO PAIN LEVEL 1-3; Start 09/20/16 at 12:00; Status Future hold Acetaminophen (Ofirmev 1000mg/ 100ml Iv) 100 ml @ 400 mls/hr Q8H IVPB Last administered on 09/21/16 11:22; Admin Dose 400 MLS/HR; Start 09/20/16 at 12:00 ; Stop 09/22/16 at 04:14 Zolpidem Tartrate (Ambien) 5 mg HS PRN PO INSOMNIA; Start 09/20/16 at 12:00 Miscellaneous Information (Note) NOTE XX ; Start 09/20/16 at 12:00 Aspirin (Ecotrin) 325 mg BID PO Last administered on 09/21/16 09:16; Admin Dose 325 MG; Start 09/21/16 at 09:00 Celecoxib (Celebrex) 200 mg BID PO Last administered on 09/21/16 09:16; Admin Dose 200 MG; Start 09/21/16 at 09:00 Dexamethasone (Decadron) 4 mg DAILY@07 IV Last administered on 09/21/16 06:33 ; Admin Dose 4 MG; Start 09/21/16 at 07:00; Stop 09/24/16 at 06:59 Pantoprazole (Protonix Tab) 40 mg DAILY@06 PO ; Start 09/22/16 at 06:00 Docusate Sodium/ Ferrous Fumarate (Jarett-Sequels) 1 tab BID PO Last administered on 09/21/16 09:15; Admin Dose 1 TAB; Start 09/21/16 at 09:00 Docusate Sodium (Colace) 200 mg BID PO Last administered on 09/21/16 09:16; Admin Dose 200 MG; Start 09/21/16 at 09:00; Stop 09/24/16 at 08:59 Simethicone (Mylicon) 80 mg TID PRN PO DISTENSION/GAS/BLOATING; Start 09/20/16 at 12:00 Senna/Docusate Sodium (Senokot-S) 2 tab BID PRN PO CONSTIPATION; Start at 12:00 Magnesium Hydroxide (Milk Of Mag) 30 ml HS PRN PO CONSTIPATION; Start 09/20/16 at 12:00 Bisacodyl (Dulcolax Supp) 10 mg DAILY PRN LA CONSTIPATION; Start 09/20/16 at 12 :00 Sodium Biphosphate/ Sodium Phosphate (Fleet Enema) 133 ml DAILY PRN LA CONSTIPATION; Start 09/20/16 at 12:00 Diphenhydramine HCl (Benadryl) 25 mg Q4H PRN IM ITCHING OR RASH; Start at 12:00 Ketorolac Tromethamine (Toradol) 30 mg DAILY@06 PRN INJ ADMINSTER BY SURGEON ONLY; Start 09/21/16 at 06:00; Stop 09/25/16 at 05:59 Bupivacaine HCl/ Epinephrine Bitart (Marcaine 0.25%/ Epi (Sdv) 30 ml) 20 ml DAILY@06 PRN INJ ADMINSTER BY SURGEON ONLY; Start 09/21/16 at 06:00; Stop 09/25 at 05:59 Naloxone HCl (Narcan) 0.2 mg Q2M PRN IV DECREASED REPIRATORY RATE; Start at 12:00 Brinzolamide (Azopt) 1 drop BID BOTH EYES Last administered on 09/20/16 21:14 ; Admin Dose 1 DROP; Start 09/20/16 at 21:00 Latanoprost (Xalatan) 1 drop QHS BOTH EYES Last administered on 09/20/16 21:15 ; Admin Dose 1 DROP; Start 09/20/16 at 21:00 Metoprolol Succinate (Toprol Xl) 25 mg BID PO Last administered on 09/21/16 09 :16; Admin Dose 25 MG; Start 09/20/16 at 21:00 Calcium Carbonate (Oyster Shell Calcium) 1.25 gm DAILY PO Last administered on 09/21/16 09:16; Admin Dose 1.25 GM; Start 09/20/16 at 18:00 Miscellaneous Information 1 ea NOTE XX ; Start 09/20/16 at 13:30 Glucose (Glutose) 15 gm Q15M PRN PO DECREASED GLUCOSE; Start 09/20/16 at 13:30 Glucose (Glutose) 22.5 gm Q15M PRN PO DECREASED GLUCOSE; Start 09/20/16 at 13: 30 Dextrose (D50w Syringe) 25 ml Q15M PRN IV DECREASED GLUCOSE; Start 09/20/16 at 13:30 Dextrose (D50w Syringe) 50 ml Q15M PRN IV DECREASED GLUCOSE; Start 09/20/16 at 13:30 Glucagon (Glucagen) 1 mg Q15M PRN IM DECREASED GLUCOSE; Start 09/20/16 at 13:30 Glucose (Glutose) 15 gm Q15M PRN BUCCAL DECREASED GLUCOSE; Start 09/20/16 at 13 :30 Phenol 1 lozenge 1 lozenge Q1H PRN MT COUGH Last administered on 09/21/16 11: 22; Admin Dose 1 LOZENGE; Start 09/21/16 at 11:30 Sodium Chloride (1/2 NS) 1,000 ml @ 75 mls/hr [id number] IV Last administered on 09/21/16 11:29; Admin Dose 75 MLS/HR; Start 09/21/16 at 11:30; Stop 09/22/16 at 00:49 Linagliptin (Tradjenta) 5 mg DAILY PO Last administered on 09/21/16 11:29; Admin Dose 5 MG; Start 09/21/16 at 12:00 VIRGIE VÁZQUEZ MD Sep 21, 2016 19:17
[2016-09-21 21:10] VITALS: BP 119/57; RESP 20
[2016-09-21] MEDS: LATANOPROST 0.005% 2.5 ML OPH BOTH EYES SCH (21:14)
[2016-09-22] MEDS: DEXTROSE 5%-LR 1,000 ML IV SCH ×2 (01:02→13:32)
[2016-09-22] MEDS: ACETAMINOPHEN 1000MG/100ML IV 100 ML IVPB SCH (04:54)
[2016-09-22 05:46] LABS: BASOPHILS % 0.4 % (0.0-2.0); EOSINOPHILS # 0.1 10^3/ul (0.0-0.5); EOSINOPHILS % 1.3 % (0.0-7.0); HEMATOCRIT 33.2 % (37.0-47.0); HEMOGLOBIN 11.1 g/dl (12.0-16.0); LYMPHOCYTES # 1.9 10^3/ul (0.8-2.9); LYMPHOCYTES % 18.4 % (15.0-51.0); MEAN CORPUSCULAR HEMOGLOBIN 28.8 pg (29.0-33.0); MEAN CORPUSCULAR HGB CONC 33.5 g/dl (32.0-37.0); MEAN CORPUSCULAR VOLUME 85.8 fl (82.0-101.0); MEAN PLATELET VOLUME 9.5 fl (7.4-10.4); MONOCYTE # 0.9 10^3/ul (0.3-0.9); MONOCYTES % 8.8 % (0.0-11.0); NEUTROPHIL # 7.4 10^3/ul (1.6-7.5); NEUTROPHILS % 71.1 % (39.0-77.0); PLATELET COUNT 181 10^3/UL (140-440); RED BLOOD COUNT 3.88 10^6/ul (4.20-5.40); RED CELL DISTRIBUTION WIDTH 13.7 % (11.5-14.5); UNCORRECTED WBC 10.5 10^3/ul (4.8-10.8); WHITE BLOOD COUNT 10.5 10^3/ul (4.8-10.8)
[2016-09-22 05:57] LABS: CONDITION 1
[2016-09-22] MEDS: LEVOTHYROXINE 25 MCG TAB PO SCH (06:08)
[2016-09-22] MEDS: PANTOPRAZOLE (EC) 40 MG TAB PO SCH (06:08)
[2016-09-22] MEDS: DEXAMETHASONE 4 MG/ML 1 ML INJ IV SCH (06:09)
[2016-09-22 06:25] LABS: CALCIUM 8.7 mg/dl (8.4-10.2); CREATININE 1.19 mg/dl (0.44-1.00)
--- NOTE | 2016-09-22 08:15 | PN ---
Date/Time of Note Date/Time of Note DATE: 09/22/16 TIME: 08:13 Assessment/Plan VTE Prophylaxis VTE Prophylaxis Intervention: ambulation, SCD's, other (Aspirin 325 mg twice daily) Lines/Catheters IV Catheter Type (from Nrsg): Saline Lock Agustin in Place (from Nrsg): Yes Assessment/Plan Assessment/Plan -Pain Cocktail Given -Pain Meds as needed -Dress change performed today -OOB with PT -ASA/SCDs for DVT Prophylaxis -Continue monitoring with Internal Medicine -Patient Stable -Likely will be d/c home with home health tomorrow. Subjective 24 Hr Interval Summary 81-year-old female postop day 2 status post right total knee replacement. No complaints of pain. Up and out of bed. Walking throughout the hallways with use of front wheeled walker. Patient is doing well. Denies any calf pain, chest pain or shortness of breath. Constitutional: no complaints Exam/Review of Systems Vital Signs Vitals Vital Signs Date Time Temp Pulse Resp B/P Pulse Ox O2 Delivery O2 Flow Rate FiO2 09/22/16 08:55 97.6 71 18 127/61 94 09/20/16 18:30 Nasal Cannula 2.0 Intake and Output 09/21/16 09/21/16 09/22/16 15:00 23:00 07:00 Intake Total 1100 ml 600 ml Output Total 800 ml Balance 300 ml 600 ml Exam Free Text/Dictation -Hemovac: Removed -Pain Cocktail Drains: Intact -Incision: Clean, Dry and Intact without any redness or drainage -5/5 Tibialis Anterior, EHL Gastrocnemius/Soleus and Peroneals -Normal Sensation -Palpable DP/PT, Capillary Refill <2 secs -No Distal Edema -Negative Dudley Sign/No calf pain -Toes Freely Movable Results Result Diagram: 09/22/16 0443 09/22/16 0443 DAVONTE ALMARAZ PA-C Sep 22, 2016 08:15
--- NOTE | 2016-09-22 08:17 | PDOCDIS ---
Discharge Instructions DIAGNOSIS Discharge Diagnosis: s/p right total replacement CONDITION Patient Condition: Stable HOME CARE INSTRUCTIONS: Diet Instructions: RegularSpecial Diet: REGULAR ACTIVITY: Activity Restrictions: Slowly Increase Activity Rest between Activity Avoid heavy lifting Do not Drive Do not operate Machinery Avoid Heavy Housework Weight Bearing (As tolerated) Bathing Restrictions: Shower (Using Tegaderm with pad. Apply Tegaderm prior to shower. Make sure that region is completely dry before moving Tegaderm. You may repeat the steps every day until eros are removed in about 10 days postop.) FOLLOW UP/APPOINTMENTS Appointments Follow-up on October 11, 2016 at 2:15 PM DVT prophylaxis with aspirin 325 mg twice daily Pain medications as needed. Should you experience any complications or issues prior to your follow-up appointment, you may call and schedule sooner appointment if needed. DAVONTE ALMARAZ PA-C Sep 22, 2016 08:17
[2016-09-22] MEDS: DOCUSATE SODIUM 100 MG CAP PO SCH ×2 (08:32→20:36)
[2016-09-22] MEDS: FERROUS FUMARATE (SR) TAB PO SCH ×2 (08:32→20:36)
[2016-09-22] MEDS: LINAGLIPTIN 5 MG TABLET PO SCH (08:32)
[2016-09-22] MEDS: ASPIRIN (EC) 325 MG TAB PO SCH ×2 (08:32→20:36)
[2016-09-22] MEDS: CALCIUM CARBONATE 1.25 GM TAB PO SCH (08:32)
[2016-09-22] MEDS: CELECOXIB 200 MG CAP PO SCH ×2 (08:32→20:36)
[2016-09-22] MEDS: INSULIN ASPART [NOVOLOG] 3 ML PEN SC SCH ×3 (08:34→17:51)
[2016-09-22] MEDS: METOPROLOL (XL) 25 MG TAB PO SCH ×2 (08:36→20:36)
[2016-09-22] MEDS: BRINZOLAMIDE 1% 10ML OPH BOTH EYES SCH ×2 (08:37→20:35)
[2016-09-22 08:55] VITALS: BP 127/61; RESP 18
--- NOTE | 2016-09-22 09:49 | CONS ---
DATE OF ADMISSION: 09/20/2016 DATE OF CONSULTATION: 09/22/2016 Patient seen in consult follow up 09/22/2015 approximately 7:45 a.m. SUBJECTIVE: Patient smiling. No obvious complaints and says she had relatively good night. OBJECTIVE: VITAL SIGNS: The patient's vital signs revealed the following: The patient's blood pressure 127/61, pulse 71 and regular, respirations 18, temperature 97.6, O2 saturation 94% on room air. HEENT: Unremarkable. LUNGS: Clear. HEART: Reveals a regular rhythm. The rest of the exam is unremarkable. IMPRESSION: 1. 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 2. Hypertension. 3. Hypothyroidism. 4. Diabetes mellitus type 2. DISCUSSION: Review of laboratory and other data revealed the following: The patient's CBC in accep table ranges. White count is at 10.5, hemoglobin and hematocrit is 11 and 33 which is somewhat low, but not unusual postoperatively. Chemistry panel reveals normal electrolytes. BUN and creatinine are somewhat high, but of no great consequence. Random glucose at that point was 133. Patient's Ac cu-Cheks the highest value was 176 on the value before dinner. Other than that, she has been quite stable, is working with therapy and should be doing relatively well, management per Dr. Eng. Thank you again, Dr. Eng, for allowing us to participate in the care of this patient. Dictated By: DEREK CARLSON/NTS Conf#: [id number] DID#: [id number]
[2016-09-22 15:40] VITALS: BP 147/82; PULSE 82; RESP 18
[2016-09-22 20:03] VITALS: BP 135/65; PULSE 68; RESP 18
[2016-09-22] MEDS: LATANOPROST 0.005% 2.5 ML OPH BOTH EYES SCH (20:35)
[2016-09-23] MEDS: DEXTROSE 5%-LR 1,000 ML IV SCH (01:07)
[2016-09-23] MEDS: PANTOPRAZOLE (EC) 40 MG TAB PO SCH (05:41)
[2016-09-23] MEDS: LEVOTHYROXINE 25 MCG TAB PO SCH (05:41)
[2016-09-23] MEDS: DEXAMETHASONE 4 MG/ML 1 ML INJ IV SCH (05:42)
[2016-09-23 05:52] LABS: BASOPHILS % 0.3 % (0.0-2.0); EOSINOPHILS # 0.3 10^3/ul (0.0-0.5); EOSINOPHILS % 2.6 % (0.0-7.0); HEMATOCRIT 35.6 % (37.0-47.0); HEMOGLOBIN 11.8 g/dl (12.0-16.0); LYMPHOCYTES # 2.2 10^3/ul (0.8-2.9); LYMPHOCYTES % 18.6 % (15.0-51.0); MEAN CORPUSCULAR HEMOGLOBIN 28.9 pg (29.0-33.0); MEAN CORPUSCULAR HGB CONC 33.3 g/dl (32.0-37.0); MEAN CORPUSCULAR VOLUME 86.7 fl (82.0-101.0); MEAN PLATELET VOLUME 9.6 fl (7.4-10.4); NEUTROPHILS % 69.5 % (39.0-77.0); PLATELET COUNT 189 10^3/UL (140-440); RED CELL DISTRIBUTION WIDTH 13.5 % (11.5-14.5); UNCORRECTED WBC 11.6 10^3/ul (4.8-10.8); WHITE BLOOD COUNT 11.6 10^3/ul (4.8-10.8)
[2016-09-23 06:13] LABS: CONDITION 1
[2016-09-23 07:55] VITALS: BP 142/62; PULSE 81; RESP 20
[2016-09-23] MEDS: LINAGLIPTIN 5 MG TABLET PO SCH (08:39)
[2016-09-23] MEDS: FERROUS FUMARATE (SR) TAB PO SCH (08:39)
[2016-09-23] MEDS: CALCIUM CARBONATE 1.25 GM TAB PO SCH (08:39)
[2016-09-23] MEDS: DOCUSATE SODIUM 100 MG CAP PO SCH (08:39)
[2016-09-23] MEDS: ASPIRIN (EC) 325 MG TAB PO SCH (08:39)
[2016-09-23] MEDS: CELECOXIB 200 MG CAP PO SCH (08:39)
[2016-09-23] MEDS: METOPROLOL (XL) 25 MG TAB PO SCH (08:41)
[2016-09-23] MEDS: INSULIN ASPART [NOVOLOG] 3 ML PEN SC SCH (08:41)
[2016-09-23] MEDS: BRINZOLAMIDE 1% 10ML OPH BOTH EYES SCH (08:41)
--- NOTE | 2016-09-23 11:39 | PN ---
Date/Time of Note Date/Time of Note DATE: 09/23/16 TIME: 11:38 Assessment/Plan Lines/Catheters IV Catheter Type (from Nrsg): Saline Lock Agustin in Place (from Nrsg): Yes Assessment/Plan Assessment/Plan POD #3, s/p right TKA -pain cocktail given -pain meds as needed -ASA/SCDs for DVT prophylaxis -OOB with PT -dressing changed -d/c home today -follow up in the office with Dr. Eng as instructed Subjective 24 Hr Interval Summary Doing well. No acute overnight events. Mild pain. Progressing with physical therapy. Denies f/c. VSS, afebrile. Exam/Review of Systems Vital Signs Vitals Vital Signs Date Time Temp Pulse Resp B/P Pulse Ox O2 Delivery O2 Flow Rate FiO2 09/23/16 07:55 98.0 81 20 142/62 94 Room Air 09/22/16 15:40 2.0 Intake and Output 09/22/16 09/22/16 09/23/16 15:00 23:00 07:00 Intake Total 900 ml 800 ml Output Total 900 ml Balance 900 ml -100 ml Exam Free Text/Dictation Dressing dry Incision clean, dry, and intact without redness or drainage Thigh soft 5/5 Quadriceps, Tibialis Anterior, EHL, Gastroc, Soleus, Peroneals Normal sensation Palpable DT/PT, CR <2 sec No distal edema Results Result Diagram: 09/23/16 0415 09/22/16 0443 MARCELO THAKKAR PA-C Sep 23, 2016 11:39
--- NOTE | 2016-09-25 11:06 | DS ---
Date/Time of Note Date/Time of Note DATE: 09/25/16 TIME: 11:01 Discharge Summary Admission/Discharge Info Admit Date/Time Sep 20, 2016 at 05:43 Discharge Date/Time Sep 23, 2016 at 12:40 Final Diagnosis Status Post Right Total Knee Replacement. Patient Condition: Stable Hospital Course On the day of admission, the patient underwent right total knee replacement Intraoperative complications: None Postoperative complications: None The patient was given prophylactic antibiotics and anticoagulants. On the day of surgery and first postoperative day patient was started on gait training and was taught usual restrictions following right total knee replacement Suction drain removed on the first postoperative day and the dressings were changed. The wound was found to be clean and healing well. There was no sign of infection. Pain cocktail given. On the second postoperative day, patient continued with inpatient PT. Dressings were changed. Wound was found to be clean and healing well. No signs of infection. Pain cocktail given. On the day of discharge, the wound was clean and healing well; there was no sign of infection. The dressings were changed. Additional Tegaderm was provided for patient with instructions on how to use while showering to keep wound dry. Discharge Temperature: 98 Discharge White Blood Cell Count: 11.6 Discharge Hemoglobin: 11.8 The patient was discharged home with home health provided by [facility] per her family. The patient will be seen in office at scheduled postoperative evaluation date given on their preoperative exam. Should patient complain of any problems prior to scheduled postoperative evaluation date, they may call into outpatient clinic to determine if they need to be scheduled at sooner appointment to be seen immediately if needed. Discharge medications: As per medication reconciliation form Diet: Same as preadmission diet. This is Davonte Hope PA-C dictating discharge summary for Dr. Cesar Eng. Home Meds Reported Medications Brinzolamide (Azopt) 10 Ml Drops.susp, 1 DROP BOTH EYES BID 09/20/16 Latanoprost (Latanoprost) 2.5 Ml Drops, 1 DROP BOTH EYES QHS, #1 BOTTLE 09/20/16 Calcium Carbonate (CALCIUM) 600 Mg Tablet, 600 MG PO DAILY, TAB 09/20/16 Levothyroxine Sodium* (Levothyroxine Sodium*) 25 Mcg Tablet, 25 MCG PO BEFORE BREAKFAST, #30 TAB 09/20/16 Valsartan/Hydrochlorothiazide (Diovan Hct 160-12.5 mg Tab) 1 Each Tablet, 1 EACH PO DAILY, TAB 09/20/16 Metoprolol Succinate* (Toprol XL*) 25 Mg Tab.sr.24h, 25 MG PO BID, #30 TAB 09/20/16 Discontinued Reported Medications Aspirin* (Aspirin* Chew) 81 Mg Tab.chew, 81 MG PO DAILY, TAB.CHEW 09/20/16 Follow-up Plan F/u at post op appt date given to her at her preop exam. DAVONTE ALMARAZ PA-C Sep 25, 2016 11:06
== END 2016-09-23 12:40 | disposition home health service (06) | DRG 470 ==
LOC: REC 05:43 → EDSTATUS 07:30 → MS1 15:48
PROC: 0SRC0J9 Replacement of Right Knee Joint with Synthetic Substitute, Cemented, Open Approach (ICD-10-PCS; principal; 2016-09-21)
DX: M17.11 Unilateral primary osteoarthritis, right knee (principal); E11.9 Type 2 diabetes mellitus without complications; Z68.42 Body mass index [BMI] 45.0-49.9, adult; I10 Essential (primary) hypertension; E66.01 Morbid (severe) obesity due to excess calories; E03.9 Hypothyroidism, unspecified; I97.2 Postmastectomy lymphedema syndrome; Y83.8 Other surgical procedures as the cause of abnormal reaction of the patient, or of later complication, without mention of misadventure at the time of the procedure; Y92.89 Other specified places as the place of occurrence of the external cause; Z85.3 Personal history of malignant neoplasm of breast
CPT/HCPCS: 73560; 73562; 80048; 81003; 82962; 85025; 86850; 86870; 86900; 86901; 86920; 87081; 87086; 88304; 88311; 97110; 97116; 97163; 97167; 97530; C1713; C1776; J0131; J0330; J0690; J0735; J1100; J1815; J1885; J2250; J2274; J2405; J2710; J2795; J3010; J3370; J7121